=== PATIENT | male | born 1945 | race Caucasian/White ===

== ENCOUNTER → 2018-10-04 | Outpatient (CLI) | payer OTHER ==
--- NOTE | 2018-10-05 15:25 | SLEEP ---
[address] [address] SLEEP STUDY REPORT Name: KIKI KERN Room: [facility].#: [id number] Admission: 10/04/18 Attend Phys: Destin Smith MD Discharge: Date of : 47 Report #: [id number] THIS REPORT FOR: //name// CC: Destin Smith [facility] This study has been reviewed in its entirety by a board certified sleep specialist DATE OF SERVICE: 10/04/2018 ATTENDING PHYSICIAN: Dr. Destin Smith The patient is 73 years old who weighs 205 pounds with a BMI of 31.2. The patient's Marne score was 11. The patient underwent a split night study performed at [facility]. During the night study, the patient spent 424 minutes in bed and slept for 253 minutes with a low sleep efficiency of 60%. Sleep latency was 15 minutes with a REM latency of 370 minutes, which is prolonged. Overall, sleep architecture showed increased stage 1 sleep, normal stage 2 sleep, normal slow wave sleep and reduced REM sleep. During the initial diagnostic portion of the study, the patient slept for 51.5 minutes. During that time, the patient had 10 obstructive apneas, no mixed or central apneas and 53 hypopneas. The patient's apnea hypopnea index was 73 per hour. REM sleep was not seen during the diagnostic portion. Supine AHI was 73 per hour as well. EKG monitoring revealed an average heart rate of 64 beats per minute. No arrhythmias observed. PLMS were seen at an index of 199 per hour and 68 per hour caused EEG arousals. PLMS did improve while the patient slept on CPAP at an index of 53 per hour and arousal index of 13 per hour. Nocturnal oximetry studies revealed an average oxygen saturation of 92% with the lowest of 67%. 7.5 minutes were spent in oxygen saturation of less than 89% and another 2.9 minutes with saturation of less than 79%. The patient met the criteria for CPAP initiation. It was started at 7 cm of water and titrated up to 17 cm of water. However, at a lower pressure of 16 cm water the patient did reasonably well as well with supine and REM sleep. The patient's AHI was 5.1 per hour. The patient had 70 minutes [place] [address] SLEEP STUDY REPORT Name: KIKI KERN Room: [facility]#: [id number] Admission: 10/04/18 Attend Phys: Destin Smith MD Discharge: Date of : 47 Report #: [id number] patient had supine as well as REM sleep. Oxygen saturation remained above 90%. At the final pressure of 17 cm of water, the patient also had 18 minutes of sleep, supine sleep was seen, but no REM sleep seen. The patient's AHI was 3.3 per hour. Snoring did improve as well. This would be the final pressure. IMPRESSION: 1. Severe sleep apnea-hypopnea syndrome at an AHI of 73 per hour. 2. Nocturnal hypoxia secondary to obstructive sleep apnea, but resolved with CPAP. 3. Severe periodic limb movements. RECOMMENDATIONS: 1. CPAP at 17 cm of water completely eliminated the patient's sleep apnea and should be used on a nightly basis. 2. Follow up in 4-6 weeks to assess compliance with CPAP and to document clinical improvement. 3. Weight loss is advised. 4. Avoid [employer] depressants. 5. Cautioned regarding driving until symptoms of sleep apnea resolve with the use of CPAP. 6. The patient's PLMS can be treated with dopaminergic agonist agents if the patient is clinically symptomatic. The patient should also be further evaluated for symptoms of restless legs during the day. <ELECTRONICALLY SIGNED> By: Ryley Adorno MD 10/05/18 1525 [id number] Adorno MD /nt
== END ==
LOC: M.SLEEPLAB 19:51
DX: G47.33 Obstructive sleep apnea (adult) (pediatric) (principal); G47.34 Idiopathic sleep related nonobstructive alveolar hypoventilation; G47.61 Periodic limb movement disorder